=== PATIENT | male | born 1980 | race African-American/Black ===

== ENCOUNTER 2020-07-03 10:20 | Emergency (ER) | payer SELFPAY ==
[2020-07-03] MEDS ORDERED: HYDROCODONE/APAP 7.5/325 MG TAB ONE (12:58)
[2020-07-03 13:42] LABS: SARS-COV-2 RT PCR POSITIVE (NEGATIVE)
--- NOTE | 2020-07-03 13:53 | ER ---
Nurse's Notes [facility] Name: Jose Jeffries Age: 40 yrs Sex: Male : 1980 Arrival Date: 07/03/2020 Time: 10:24 Bed 16 Private MD: Diagnosis: Coronavirus infection, unspecified Presentation: 07/03 10:46 Chief complaint: Patient states: "I just feel awful. I have flu like symptoms. My bones ss are aching, my back and I have a massive headache.". Coronavirus screen: Client presents with at least one sign or symptom that may indicate coronavirus-19. Standard/surgical mask placed on the client. Ebola Screen: Patient denies exposure to infectious person. Patient denies travel to an Ebola-affected area in the 21 days before illness onset. Initial Sepsis Screen: Does the patient meet any 2 criteria? No. Patient's initial sepsis screen is negative. Does the patient have a suspected source of infection? No. Patient's initial sepsis screen is negative. Risk Assessment: Do you want to hurt yourself or someone else? Patient reports no desire to harm self or others. Onset of symptoms was July 01, 2020. 10:46 Method Of Arrival: Ambulatory ss 10:46 Acuity: BOUBACAR 4 ss Historical: - Allergies: 10:47 No Known Allergies; ss - Home Meds: 10:47 None [Active]; ss - PMHx: 10:47 None; ss - PSHx: 10:47 Appendectomy; Tonsillectomy; Adenoids; Hernia repair; ss - Immunization history:: Adult Immunizations up to date. - Social history:: Smoking status: Patient reports the use of cigarette tobacco products, smokes one-half pack cigarettes per day, Patient/guardian denies using alcohol, street drugs, The patient lives with family. - Family history:: not pertinent. Screenin:36 Abuse screen: Denies threats or abuse. Nutritional screening: No deficits noted. ll1 Tuberculosis screening: No symptoms or risk factors identified. Fall Risk Total Rock Fall Scale indicates No Risk (0-24 pts). Assessment: 11:35 General: Appears in no apparent distress. Behavior is calm, cooperative, appropriate ll1 for age. Pain: Complains of pain in body aches. Neuro: No deficits noted. Neuro: Level of Consciousness is awake, alert, obeys commands, Oriented to person, place, time, situation, Appropriate for age Optical Effects Line Up Person are equal bilaterally Moves all extremities. Full function Gait is steady, Speech is normal, Facial symmetry appears normal, Reports headache. Cardiovascular: No deficits noted. Musculoskeletal: Circulation, motion, and sensation intact. Capillary refill < 3 seconds, Range of motion: intact in all extremities, Reports body aches/back pain. 12:13 Reassessment: Patient appears in no apparent distress at this time. Patient and/or vg1 family updated on plan of care and expected duration. Pain level reassessed. Patient is alert, oriented x 3, equal unlabored respirations, skin warm/dry/pink. Patient states generalized body aches, states pain 10/10; states has a slight cough and nasal congestion. Denies N/V/D. Notified provider of pain level. 12:43 Reassessment: Received VO from Dr Lewis to administer [place] 7.5 mg/325 mg PO x1. vg1 13:46 Reassessment: No changes from previously documented assessment. Patient and/or family vg1 updated on plan of care and expected duration. Pain level reassessed. Patient is alert, oriented x 3, equal unlabored respirations, skin warm/dry/pink. Vital Signs: 10:47 BP 125 / 84; Pulse 85; Resp 15; Temp 98.1(TE); Pulse Ox 99% on R/A; Weight 108.86 kg; ss Height 5 ft. 10 in. (177.80 cm); Pain 10/10; 12:14 BP 124 / 92; Pulse 70; Resp 16; Pulse Ox 100% on R/A; vg1 13:00 BP 113 / 80; Pulse 73; Resp 18; Pulse Ox 98% on R/A; vg1 10:47 Body Mass Index 34.44 (108.86 kg, 177.80 cm) ED Course: 10:24 Patient arrived in ED. mr 10:47 Triage completed. ss 10:47 Arm band placed on right wrist. ss 11:05 Jaime Lewis MD is Attending Physician. ma2 11:09 Donna Maldonado, NEELAM is Primary Nurse. ll1 11:36 Patient has correct armband on for positive identification. Bed in low position. Call ll1 light in reach. Side rails up X 1. 12:00 Primary Nurse role handed off by Donna Maldonado RN vg1 12:00 Génesis Tyson, RN is Primary Nurse. vg1 14:05 No provider procedures requiring assistance completed. Patient did not have IV access vg1 during this emergency room visit. Administered Medications: 12:43 Drug: [place] (7.5 mg-325 mg) 1 tabs {Note: rass0.} Route: PO; vg1 13:56 Follow up: Response: No adverse reaction; Pain is unchanged, physician notified; RASS: vg1 Alert and Calm (0) Outcome: 13:52 Discharge ordered by . [email or web address] 14:05 Discharged to home ambulatory. vg1 14:05 Condition: stable 14:05 Discharge instructions given to patient, Instructed on discharge instructions, follow up and referral plans. medication usage, Demonstrated understanding of instructions, follow-up care, medications, Prescriptions given X 4. 14:06 Patient left the ED. vg1 Signatures: AlvarezLeigha [place] mr DixonLashaun RN RN Jaime Lewis MD MD nvGénesis Castro RN RN 1 Donna Maldonado RN RN 1 Corrections: (The following items were deleted from the chart) 12:45 12:13 Reassessment: Patient appears in no apparent distress at this time. Patient vg1 and/or family updated on plan of care and expected duration. Pain level reassessed. Patient is alert, oriented x 3, equal unlabored respirations, skin warm/dry/pink. Patient states generalized body aches, states pain 10/10; states has a slight cough and nasal congestion. Denies N/V/D. vg1
--- NOTE | 2020-07-03 13:53 | EDPHYS ---
Physician Documentation [facility] Name: Jose Jeffries Age: 40 yrs Sex: Male : 1980 Arrival Date: 07/03/2020 Time: 10:24 Bed 16 Private MD: ED Physician Jaime Lewis HPI: 07/03 11:27 This 40 yrs old Black Male presents to ER via Ambulatory with complaints of Flu ma2 Symptoms. 11:27 The patient or guardian reports cough, flu symptoms. Onset: The symptoms/episode ma2 began/occurred gradually, 2 day(s) ago. Severity of symptoms: At their worst the symptoms were moderate, in the emergency department the symptoms are unchanged. Associated signs and symptoms: Pertinent negatives: ear ache, nausea, rhinorrhea. The patient has not experienced similar symptoms in the past. Historical: - Allergies: 10:47 No Known Allergies; ss - Home Meds: 10:47 None [Active]; ss - PMHx: 10:47 None; ss - PSHx: 10:47 Appendectomy; Tonsillectomy; Adenoids; Hernia repair; ss - Immunization history:: Adult Immunizations up to date. - Social history:: Smoking status: Patient reports the use of cigarette tobacco products, smokes one-half pack cigarettes per day, Patient/guardian denies using alcohol, street drugs, The patient lives with family. - Family history:: not pertinent. ROS: 11:27 Constitutional: Negative for fever, chills, and weight loss. ma2 11:27 All other systems are negative. Exam: 11:27 Constitutional: This is a well developed, well nourished patient who is awake, alert, ma2 and in no acute distress. Head/Face: Normocephalic, atraumatic. Eyes: Pupils equal round and reactive to light, extra-ocular motions intact. Lids and lashes normal. Conjunctiva and sclera are non-icteric and not injected. Cornea within normal limits. Periorbital areas with no swelling, redness, or edema. ENT: Nares patent. No nasal discharge, no septal abnormalities noted. Tympanic membranes are normal and external auditory canals are clear. Oropharynx with no redness, swelling, or masses, exudates, or evidence of obstruction, uvula midline. Mucous membranes moist. Neck: Trachea midline, no thyromegaly or masses palpated, and no cervical lymphadenopathy. Supple, full range of motion without nuchal rigidity, or vertebral point tenderness. No Meningismus. Chest/axilla: Normal chest wall appearance and motion. Nontender with no deformity. No lesions are appreciated. Cardiovascular: Regular rate and rhythm with a normal S1 and S2. No gallops, murmurs, or rubs. Normal PMI, no JVD. No pulse deficits. Respiratory: Lungs have equal breath sounds bilaterally, clear to auscultation and percussion. No rales, rhonchi or wheezes noted. No increased work of breathing, no retractions or nasal flaring. Abdomen/GI: Soft, non-tender, with normal bowel sounds. No distension or tympany. No guarding or rebound. No evidence of tenderness throughout. MS/ Extremity: Pulses equal, no cyanosis. Neurovascular intact. Full, normal range of motion. Neuro: Awake and alert, GCS 15, oriented to person, place, time, and situation. Cranial nerves II-XII grossly intact. Motor strength 5/5 in all extremities. Sensory grossly intact. Cerebellar exam normal. Normal gait. Vital Signs: 10:47 BP 125 / 84; Pulse 85; Resp 15; Temp 98.1(TE); Pulse Ox 99% on R/A; Weight 108.86 kg; ss Height 5 ft. 10 in. (177.80 cm); Pain 10/10; 12:14 BP 124 / 92; Pulse 70; Resp 16; Pulse Ox 100% on R/A; vg1 13:00 BP 113 / 80; Pulse 73; Resp 18; Pulse Ox 98% on R/A; vg1 10:47 Body Mass Index 34.44 (108.86 kg, 177.80 cm) MDM: 11:27 Differential Diagnosis: Upper Respiratory Infection Sinusitis Pharyngitis Otitis Media. ma2 Data reviewed: vital signs, nurses notes. Counseling: I had a detailed discussion with the patient and/or guardian regarding: the historical points, exam findings, and any diagnostic results supporting the discharge/admit diagnosis, the presence of at least one elevated blood pressure reading (>120/80) during this emergency department visit, the need for outpatient follow up. Response to treatment: the patient's symptoms have markedly improved after treatment. 13:52 Patient medically screened. ma2 07/03 13:42 Order name: COVID-19/FLU A+B EDMS Administered Medications: 12:43 Drug: [place] (7.5 mg-325 mg) 1 tabs {Note: rass0.} Route: PO; vg1 13:56 Follow up: Response: No adverse reaction; Pain is unchanged, physician notified; RASS: vg1 Alert and Calm (0) Disposition: 07/03/20 13:52 Discharged to Home. Impression: Coronavirus infection, unspecified. - Condition is Stable. - Discharge Instructions: Laryngitis, [id number]. - Prescriptions for Diclofenac Sodium 75 mg Oral Tablet Sustained Release - take 1 tablet by ORAL route 2 times per day; 30 tablet. Zithromax Z- Manuelito 250 mg Oral Tablet - take 1 tablet by ORAL route as directed for 5 days Day 1 - take two (2) tablets one time. Day 2, 3, 4 , 5 take one (1) tablet once daily.; 6 tablet. Medrol (Manuelito) 4 mg Oral Tablets, Dose Pack - take 1 tablet by ORAL route as directed - follow package instructions; 1 packet. Albuterol Sulfate 90 mcg/actuation - inhale 1-2 puff by INHALATION route every 4-6 hours; 1 Inhaler. - Medication Reconciliation Form, Thank You Letter, Antibiotic Education, Prescription Opioid Use, Work release form form. - Follow up: Private Physician; When: Tomorrow; Reason: If symptoms return, Continuance of care. Signatures: Dispatcher [employer] EDMS Lashaun Dixon RN RN Jaime Lewis MD MD nm2 Génesis Tyson RN RN vg1 Corrections: (The following items were deleted from the chart) 12:53 11:09 Influenza Screen (A \T\ B)+BA.LAB.BRZ ordered. EDMS EDMS 12:53 11:09 CORONAVIRUS+MR.LAB.BRZ ordered. EDMS EDMS 14:06 13:52 07/03/2020 13:52 Discharged to Home. Impression: Coronavirus infection, vg1 unspecified. Condition is Stable. Prescriptions for Diclofenac Sodium 75 mg Oral Tablet Sustained Release - take 1 tablet by ORAL route 2 times per day; 30 tablet, Zithromax Z-Manuelito 250 mg Oral Tablet - take 1 tablet by ORAL route as directed for 5 days Day 1 - take two (2) tablets one time. Day 2, 3, 4 , 5 take one (1) tablet once daily.; 6 tablet, Medrol (Manuelito) 4 mg Oral Tablets, Dose Pack - take 1 tablet by ORAL route as directed - follow package instructions; 1 packet, Albuterol Sulfate 90 mcg/actuation - inhale 1-2 puff by INHALATION route every 4-6 hours; 1 Inhaler. and Forms are Medication Reconciliation Form, Thank You Letter, Antibiotic Education, Prescription Opioid Use. Follow up: Private Physician; When: Tomorrow; Reason: If symptoms return, Continuance of care. ma2
[2020-07-03 14:18] VITALS: TEMP 98.1
[2020-07-03 14:21] VITALS: BP 113/80; O2SAT 98
== END 2020-07-03 14:06 | disposition home or self-care (01) ==
LOC: ER 10:20
DX: U07.1 COVID-19 (principal); F17.210 Nicotine dependence, cigarettes, uncomplicated
CPT/HCPCS: 0240U; 99283